=== PATIENT | female | born 1950 | race Caucasian/White ===

== ENCOUNTER 2018-03-18 09:17 | Outpatient (CLI) | payer MEDICARE, OTHER ==
[2018-03-18 10:41] LABS: #Eosinphils 0.3 thou/uL (0.0-0.7); #Lymphocytes 1.3 thou/uL (1.20-3.40); #Monocytes 0.5 thou/uL (0.11-0.59); #Neutrophils 3.5 thou/uL (1.40-6.50); %Basophils 0.7 % (0.0-1.0); %Eosinophils 5.5 % (0.0-10.0); %Lymphocytes 23.7 % (21.0-51.0); %Monocytes 8.4 % (0.0-10.0); %Neutrophils 61.7 % (42.0-75.0); Hemoglobin 13.1 g/dL (12.0-16.0); Mean Corpuscular HGB CONC 31.6 g/dL (32.0-36.0); Mean Corpuscular Hemoglobin 26.2 pg (27.0-31.0); Mean Corpuscular Volume 83.1 fL (78.0-98.0); Mean Platelet Volume 8.6 fL (7.4-10.4); Platelet Count 231 thou/uL (130-400); White Blood Cell (WBC) Count 5.7 thou/uL (4.8-10.8)
[2018-03-18 11:06] LABS: ALT (SGPT) 14 U/L (8-55); AST (SGOT) 13 U/L (5-34); Alkaline Phosphatase 129 U/L (40-150); Anion Gap 10 mmol/L (10-20); BUN (Urea Nitrogen) 14 mg/dL (9.8-20.1); Bilirubin, Total 0.5 mg/dL (0.2-1.2); Calc. Creatinine Clearance 0 mL/min (70-130); Calcium 9.1 mg/dL (7.8-10.44); Carbon Dioxide 30 mmol/L (23-31); Chloride 103 mmol/L (98-107); Estimated GFR-MDRD 77; Globulin 3.2 g/dL (2.4-3.5); Glucose 75 mg/dL (80-115); Potassium 3.8 mmol/L (3.5-5.1); Protein, Total 7.2 g/dL (6.0-8.3); Sodium 139 mmol/L (136-145)
--- NOTE | 2018-03-20 17:51 | EKG ---
Test Reason : Blood Pressure : / mmHG Vent. Rate : 074 BPM Atrial Rate : 074 BPM P-R Int : 172 ms QRS Dur : 086 ms QT Int : 418 ms P-R-T Axes : 062 037 008 degrees QTc Int : 463 ms Normal sinus rhythm Normal ECG When compared with ECG of 26-OCT-2014 11:57, No significant change was found Confirmed by DEVYN CERVANTES (2) on 03/20/2018 5:51:14 PM Referred By: MIAH Confirmed By:DEVYN CERVANTES
== END 2018-03-18 09:18 | disposition home or self-care (01) ==
LOC: LABBT 09:17
PROVIDERS: ATTEND Surgery
DX: Z01.818 Encounter for other preprocedural examination (principal); C50.912 Malignant neoplasm of unspecified site of left female breast
CPT/HCPCS: 80053; 85025; 93005; 93010

== ENCOUNTER 2018-03-21 07:12 | Inpatient (IN) | payer MEDICARE, OTHER ==
[2018-03-18 09:22] VITALS: BMI 26.4
[2018-03-21] MEDS ORDERED: CEFAZOLIN/Water 2 GM/20 ML SYRINGE ONE (10:15)
[2018-03-21] MEDS ORDERED: Bupivacaine HCl 0.5%/Epinephrine 1:200,000/PF 30 ml Vial ONE (10:17)
[2018-03-21] MEDS ORDERED: Isosulfan Blue 50 MG/5 ML VIAL ONE (10:17)
--- NOTE | 2018-03-21 10:28 | NM ---
LEFT BREAST LYMPHOSCINTIGRAPHY: HISTORY: Malignant neoplasm of site of left female breast. RADIOPHARMACEUTICAL: 438 mCi Technetium 99m filtered sulfur colloid injected into the left periareolar region. FINDINGS: Planar anterior and lateral images of the head, neck, chest, and axillae was performed. There are fo ci of increased uptake in the left axilla. IMPRESSION: Carlos lymph node (S) in the left axilla. POS: PETROS
[2018-03-21] MEDS ORDERED: Fentanyl 100 MCG/2 ML VIAL ONE ×2 (11:30→13:53)
[2018-03-21] MEDS ORDERED: Succinylcholine Chloride 20 MG/ML 10 ml SYRINGE FS ONE (12:40)
[2018-03-21] MEDS ORDERED: Dexamethasone 20 MG/5 ML VIAL ONE (12:40)
[2018-03-21] MEDS ORDERED: Ketorolac Tromethamine 30 MG/ML VIAL ONE (12:40)
[2018-03-21] MEDS ORDERED: PROPOFOL 200 MG/20 ML VIAL ONE (12:40)
[2018-03-21] MEDS ORDERED: Ondansetron HCl/PF 4 MG/2 ML Vial ONE (12:40)
[2018-03-21] MEDS ORDERED: PHENYLEPHRINE-NS 100 MCG/ML 10 ML SYRINGE ONE (12:40)
[2018-03-21] MEDS ORDERED: Glycopyrrolate 0.2 MG/ML 5 ML SYRINGE ONE (12:40)
[2018-03-21] MEDS ORDERED: Morphine 4 MG/ML Carpuject SLOW IVP PRN (13:31)
[2018-03-21] MEDS ORDERED: Ondansetron HCl/PF 4 MG/2 ML Vial IVP PRN ×2 (13:31→13:49)
[2018-03-21] MEDS ORDERED: Dextrose 5% in Water 1,000 ML IV PRN (13:31)
[2018-03-21] MEDS ORDERED: HYDROcodone/Acetaminophen 10/325 mg Tablet PO PRN ×2 (13:31)
[2018-03-21] MEDS ORDERED: hydrALAZINE 20 MG/ML VIAL SLOW IVP PRN (13:31)
[2018-03-21] MEDS ORDERED: Promethazine HCl 25 MG/ML VIAL IM PRN ×2 (13:31→13:49)
[2018-03-21] MEDS ORDERED: Dextrose 50% Abboject 50 ML SYRINGE SLOW IVP PRN (13:31)
[2018-03-21] MEDS ORDERED: Promethazine HCl 25 MG/ML VIAL SLOW IVP PRN (13:49)
--- NOTE | 2018-03-21 13:52 | OP ---
PREOPERATIVE DIAGNOSIS: Left breast cancer. SURGEON: Jc Carey M.D. PROCEDURE PERFORMED: Left total mastectomy, sentinel lymph node biopsy and axillary dissection. INDICATIONS: A 67-year-old female who has augmented breast, noticed a mass in the left breast. Core biopsy was positive for infiltrating ductal carcinoma. FINDINGS: A 2/4 sentinel nodes were positive. There was about a 3 cm mass in the upper central [address]. There were other palpable nodes that were suspicious in the axilla. PROCEDURE IN DETAIL: After informed consent was obtained, the patient was taken to the operating ilene m and given general endotracheal anesthesia. She has undergone placement of a radio-nucleotide in [facility] radiology suite. Lymphazurin 3 mL was infiltrated subareolar. Her left breast was prepped and yelitza ped in usual fashion. Neoprobe was used with baseline counts of 115. Transcutaneous counts of 60 we re found. An elliptical incision was performed and the lateral most aspect was used to approach the nodes. Using the Neoprobe, a blue lymph node with in vivo counts of 200 was found. This was dissect ed out. Efferent and afferent lymphatics ligated with 3-0 Vicryl ties, sent to pathology. Another c ount of 150 found and then two other counts of over 100 were found. These four nodes were sent to [facility] for touch prep. While waiting on this, the ellipse of the breast was further excised and the plane was developed between subcutaneous tissue and breast tissue utilizing the plasma blade to just below the clavicle superior to the sternum, medially to the latissimus, laterally to the rectus infe riorly taken off the pectoralis muscle to include the fascia, marked with a suture superior. Hemosta sis achieved with electrocautery. By now, the nodes came back 2/4 positive when I palpated. There w ere multiple other nodes that could be palpated, so an axillary dissection was performed. The deltop ectoral fascia was further incised. The axillary vein was found. The axillary fat pad was divided u tilizing the plasma blade. The lymphatics along the chest wall were ligated with 3-0 Vicryl ties. T he thoracodorsal nerve and vessels were dissected off the package and the specimen sent to pathology for further analysis. Hemostasis was assured. The wound was thoroughly irrigated. Two drains were placed, one in the axilla and one under the flap. Subcutaneous reapproximated with interrupted 3-0 V icryl. Skin closed with a running subcuticular 4-0 Rapide. Steri-Strips applied. Sterile bandage a pplied. The patient tolerated the procedure well and was transferred to recovery in good condition. Sponge and needle count verified correct x2.
[2018-03-21] MEDS: Lactated Ringer's 1,000 ML IV SCH (16:54)
[2018-03-21] MEDS: Docusate 100 MG CAP PO SCH (20:24)
[2018-03-21] MEDS: Famotidine 20 MG TAB PO SCH (20:24)
[2018-03-22 05:58] LABS: Anion Gap 11 mmol/L (10-20); BUN (Urea Nitrogen) 15 mg/dL (9.8-20.1); Calc. Creatinine Clearance 74 mL/min (70-130); Calcium 8.6 mg/dL (7.8-10.44); Carbon Dioxide 29 mmol/L (23-31); Chloride 101 mmol/L (98-107); Estimated GFR-MDRD 68; Glucose 132 mg/dL (80-115); Potassium 4.4 mmol/L (3.5-5.1); Sodium 137 mmol/L (136-145)
[2018-03-22 06:12] LABS: Band 13 % (5-11); Hemoglobin 10.6 g/dL (12.0-16.0); Lymphocytes 12 % (21-51); MDiff Complete? YES; Mean Corpuscular Hemoglobin 26.5 pg (27.0-31.0); Mean Platelet Volume 8.9 fL (7.4-10.4); Monocytes 1 % (0-10); Neutrophil 74 % (42-75); PLT Morphology Comment Appears Adequate; Platelet Count 215 thou/uL (130-400); RBC Distribution Width 13.8 % (11.5-14.5); White Blood Cell (WBC) Count 10.3 thou/uL (4.8-10.8)
[2018-03-22] MEDS: Lactated Ringer's 1,000 ML IV SCH (07:35)
--- NOTE | 2018-03-22 07:55 | DIS ---
DISCHARGE DIAGNOSIS: Left breast cancer. PROCEDURES DURING ADMISSION: Left total mastectomy, sentinel lymph node biopsy, completion axillary dissection. HOSPITAL COURSE: The patient was admitted. She was taken to the operating room where she underwent the sentinel node biopsy. While waiting for the results of that she underwent a total mastectomy. S he had multiple grossly positive nodes. These were confirmed. So further dissection was performed a nd further nodes that were suspicious were found. Postoperatively, she has done well. She is having minimal pain, drainage is well controlled. H&H is 10.6 and 33. The plan is to discharge her on hyd rocodone. She will follow up with me in 2-3 days.
[2018-03-22 08:15] VITALS: BP 119/70; TEMP 98.2
[2018-03-22] MEDS ORDERED: Enoxaparin Sodium 40 MG/0.4 ML SYRINGE SC SCH (09:00)
[2018-03-22] MEDS: Famotidine 20 MG TAB PO SCH (09:55)
[2018-03-22] MEDS: Docusate 100 MG CAP PO SCH (09:55)
== END 2018-03-22 10:18 | disposition home or self-care (01) | DRG 581 ==
LOC: SDC 07:12 → SURG A 15:39
PROVIDERS: ADMIT Surgery; ATTEND Surgery
PROC: 0HTU0ZZ Resection of Left Breast, Open Approach (ICD-10-PCS; principal; 2018-03-21)
PROC: 07B60ZX Excision of Left Axillary Lymphatic, Open Approach, Diagnostic (ICD-10-PCS; 2018-03-21)
DX: C50.812 Malignant neoplasm of overlapping sites of left female breast (principal); Z79.82 Long term (current) use of aspirin; Z98.82 Breast implant status; F41.9 Anxiety disorder, unspecified; E78.00 Pure hypercholesterolemia, unspecified; M19.90 Unspecified osteoarthritis, unspecified site; Z01.818 Encounter for other preprocedural examination; C50.912 Malignant neoplasm of unspecified site of left female breast
CPT/HCPCS: 36415; 78195; 80048; 80053; 85025; 88307; 88313; 88331; 88334; 88341; 88342; 93005; 93010; A9541; J0670; J3010; Q9968

== ENCOUNTER 2018-04-04 06:59 | Day surgery (SDC) | payer MEDICARE, OTHER ==
[2018-03-31 16:49] VITALS: BMI 26.4
[2018-04-04] MEDS ORDERED: CEFAZOLIN/Water 2 GM/20 ML SYRINGE ONE (08:11)
[2018-04-04] MEDS ORDERED: Bupivacaine/Epinephrine 0.25% 30 ML VIAL ONE (08:37)
[2018-04-04] MEDS ORDERED: Lidocaine 2% PF Inj 2 ML VIAL ONE (08:37)
[2018-04-04] MEDS ORDERED: PROPOFOL 20 ML ONE (08:50)
[2018-04-04] MEDS ORDERED: Midazolam HCl 2 mg/2 ml Vial ONE (08:50)
[2018-04-04] MEDS ORDERED: Fentanyl 100 MCG/2 ML VIAL ONE (08:50)
--- NOTE | 2018-04-04 10:39 | OP ---
DATE OF PROCEDURE: 04/04/2018 PREOPERATIVE DIAGNOSIS: Breast cancer. SURGEON: Jc Carey M.D. PROCEDURE PERFORMED: MediPort placement. INDICATIONS: This is a 67-year-old female who has a node positive breast cancer and needs chemothera py. FINDINGS: Right subclavian MediPort placement. PROCEDURE: After informed consent was obtained, the patient was taken to the operating room and give n general mask anesthesia, placed in supine position. Her chest was prepped and draped in usual fash ion. Local anesthesia infiltrated subcutaneously and deep and introducer needle inserted right subcl sidney. Good backflow of venous blood. J-wire threaded easily. Fluoroscopy showed good placement in superior vena cava. Skin and subcu anesthetized with local anesthesia. Transverse incision perform ed. The subcu divided sharply and a pocket created on the pectoralis fascia sharply with electrocaut marty. Then the tunneling device was used to connect the two incisions. The catheter brought through the tunnel, catheter was connected to the MediPort and flushed with heparinized saline. The MediPort was secured to pectoralis fascia with interrupted 2-0 Vicryl suture. The catheter cut to size. The peel-away introducer inserted over the wire. The wire was removed. The catheter inserted through t he peel-away introducer and the peel-away introducer removed. Fluoroscopy again used showed good myles cement in superior vena cava. The system was accessed. Good backflow of venous blood, flushed with heparinized saline. Subcu reapproximated with interrupted 3-0 Vicryl. Skin closed with running subc uticular 4-0 Rapide. Steri-Strips applied. Sterile bandage applied. The patient tolerated the proc edure well and was transferred to recovery in good condition. Sponge and needle count verified corre ct x2.
[2018-04-04] MEDS ORDERED: PROPOFOL 200 MG/20 ML VIAL ONE (10:52)
--- NOTE | 2018-04-04 11:12 | RAD ---
FRONTAL RADIOGRAPH CHEST: DATE: 04/04/2018. COMPARISON: 02/26/2015. HISTORY: Postoperative patient. FINDINGS: There is extensive postoperative hardware associated with the thoracic and lumbar spine, incompletely assessed on this exam. There is a rim-calcified breast implant on the right. A CT injectable right -sided Port-A-Cath is present, distal tip overlying the expected location of the cavoatrial junction. No pneumothorax, lobar consolidation, or alveolar edema. There is hazy increased linear density noted in both lung bases. There is a suggestion of a possible mass density in the right lung base, which is partially obscured by the patient's rim calcified breast implant. IMPRESSION: 1. CT injectable right-sided Port-A-Cath as above. 2. Question nodular mass density measuring up to 1.8 cm within the right lung base. This is partial ly obscured by the breast implant. Recommend CT chest for full assessment. CODE T POS: PETROS
== END 2018-04-04 10:47 | disposition home or self-care (01) ==
LOC: SDC 06:59
PROVIDERS: ATTEND Surgery
PROC: 02HV33Z Insertion of Infusion Device into Superior Vena Cava, Percutaneous Approach (ICD-10-PCS; principal; 2018-04-04)
DX: C50.912 Malignant neoplasm of unspecified site of left female breast (principal); E78.00 Pure hypercholesterolemia, unspecified; Z79.899 Other long term (current) drug therapy
CPT/HCPCS: 36561; 71045; C1788; J1642; J2250; J2704; J3010

== ENCOUNTER 2018-04-05 11:46 | Outpatient (CLI) | payer MEDICARE, OTHER ==
--- NOTE | 2018-04-05 15:15 | PET ---
PET WITH CT SKULL TO MID THIGH: CLINICAL HISTORY: Left breast cancer. RADIOPHARMACEUTICAL: 9.8 mCi F18-FDG IV. No prior imaging comparisons available. FINDINGS: There is mild increased metabolic activity at the medial aspect of the left scapula which is not hype rmetabolic with a SUV of approximately 1.5, nonspecific. There is no obvious destructive bone lesion identified within this region by attenuation correction CT imaging. There is a moderate to large hiat al hernia which reveals increased metabolic activity with a component of hypermetabolism, with SUV ra nging from 3.5-4.2. There are nonspecific ground-glass and reticulonodular opacities of the lungs, be low the threshold for resolution by PET CT imaging. There are interspersed faint areas of increased m etabolic activity, however, notably at the posterior left lung, with SUV of this region approximately 1.4. There is a prominent sized cyst of the left adnexa, which is not hypermetabolic, approximately 5.0 cm. IMPRESSION: 1. Mild increased metabolic activity, not hypermetabolic, involving medial aspect of the left scapul a. No obvious destructive lesion evident by attenuation correction noncontrast CT imaging. As a conse rvative measure, a whole body bone scan is warranted for a more definitive assessment. 2. Scattered ground-glass and reticulonodular opacities with slight increased metabolic activity as discussed above, although findings are too small for reliable resolution by PET CT imaging. This coul d relate to an infectious pneumonitis; however, given the component of reticulonodularity, metastatic process cannot be excluded. Recommend follow-up with dedicated CT thorax. 3. Large left adnexal cyst, approximately 5 cm. Dedicated pelvic ultrasound is warranted. This findi ng is not hypermetabolic. POS: PETROS
== END 2018-04-05 11:47 | disposition home or self-care (01) ==
LOC: PET 11:46
PROVIDERS: ATTEND Internal Medicine Hematology & Oncology
DX: C50.912 Malignant neoplasm of unspecified site of left female breast (principal); R91.8 Other nonspecific abnormal finding of lung field; N83.8 Other noninflammatory disorders of ovary, fallopian tube and broad ligament
CPT/HCPCS: 78815; A9552

== ENCOUNTER 2018-04-22 12:28 | Outpatient (CLI) | payer MEDICARE, OTHER ==
[~2018-04-22 12:28] MED LIST: Iopamidol 370 76% 100 ML VIAL ONE
--- NOTE | 2018-04-22 18:17 | CT ---
CT OF THE CHEST WITH CONTRAST: 04/22/18 HISTORY: Breast cancer and abnormal PET scan. COMPARISON: PET CT 04/05/18. TECHNIQUE: Multiple contiguous axial images were obtained in a CT of the chest with contrast. Sagittal and coron al reformats were performed. FINDINGS: The heart is normal in size without focal cardiac abnormality. No hilar or mediastinal lymphadenopath y are seen. No focal infiltrates or masses are seen in the lungs. No pneumothorax or pleural effusions are seen. Scoliotic curvature is seen of the spine. The patient has fixation rods in the spine. No suspicious o sseous lesions are identified in the visualized bones. The visualized subdiaphragmatic structures are unremarkable. The patient has had a left mastectomy. T he patient has a calcified left breast implant. There is a fluid density in the left axillary region measuring 2.0 cm in size which may represent a small seroma. IMPRESSION: 1. No evidence of acute intrathoracic abnormality. 2. No evidence of metastatic disease. POS: PETROS
== END 2018-04-22 12:29 | disposition home or self-care (01) ==
LOC: BICCT 12:28
PROVIDERS: ATTEND Internal Medicine Hematology & Oncology
DX: C50.919 Malignant neoplasm of unspecified site of unspecified female breast (principal)
CPT/HCPCS: 71260

== ENCOUNTER 2018-05-23 10:40 | Outpatient (CLI) | payer MEDICARE, OTHER ==
[2018-05-23] MEDS ORDERED: Iopamidol 370 76% 100 ML VIAL ONE (11:51)
--- NOTE | 2018-05-23 13:53 | CT ---
CT ANGIO OF CHEST PERFORMED WITH INTRAVENOUS CONTRAST ENHANCEMENT WITH 3D RECONSTRUCTIONS: HISTORY: Shortness of breath for the past 2 weeks that has been steadily worsening. The patient has a history of breast cancer. FINDINGS: The lungs are clear of any infiltrative process. No pulmonary nodules are identified. No significant mediastinal or hilar adenopathy. The thoracic aorta is normal in caliber. There is good pulmonary artery opacification, no CT evidence for pulmonary embolus. Calcified right breast implant is noted. A left mastectomy is present. A hiatal hernia is seen. It is stable as compared to the 04/22/2018 study. Visualized portions of t he liver and spleen are normal. IMPRESSION: No CT evidence for pulmonary embolus. Findings telephoned to Dr. Recinos. CODE CR POS: PETROS
== END 2018-05-23 10:41 | disposition home or self-care (01) ==
LOC: CT 10:40
PROVIDERS: ATTEND Internal Medicine Hematology & Oncology
DX: R06.02 Shortness of breath (principal); C50.112 Malignant neoplasm of central portion of left female breast; D50.8 Other iron deficiency anemias
CPT/HCPCS: 71275; 80053; 82248; 83615; 84100; 84550

== ENCOUNTER 2019-04-21 09:16 | Outpatient (CLI) | payer MEDICARE, OTHER ==
--- NOTE | 2019-04-21 12:16 | CT ---
EXAM: CT chest and abdomen with IV contrast: HISTORY: Breast cancer. History of ovarian cyst. History of left mastectomy with chemotherapy and radiation. COMPARISON: CTA thorax on 05/23/2018 and PET/CT on 04/05/2018 FINDINGS: CT THORAX: Lungs: There is patchy parenchymal density seen in the left lung apex which represents interval crouch e from the prior exam. Again noted is evidence of a left mastectomy, and there is now subcutaneous edema/stranding seen in the left lower chest. Follow-up evaluation is recommended. No discrete pulmo nary nodule or mass is identified. Pleura: No pleural effusion. Lymph nodes: No lymphadenopathy. Mediastinum: A right subclavian Mediport catheter remains in place. There is a hiatal hernia identifi ed. Chest wall: A calcified right breast prosthesis is noted with evidence of left mastectomy as describe d above. Surgical clips are seen in the left axilla. CT ABDOMEN AND PELVIS: Liver: Within normal limits. Gallbladder: Within normal limits. Pancreas: Within normal limits. Spleen: Within normal limits. Adrenal glands: Within normal limits. Kidneys: Small right renal cyst measuring 1.2 cm is seen in the midportion right kidney. Kidneys othe rwise have a normal CT appearance. Bowel: Small amount of retained fecal material seen in the visualized colon. Adenopathy:No lymphadenopathy within the abdomen or pelvis. Peritoneum: No free fluid or fluid collection is seen. No free intraperitoneal gas is identified. Abdominal wall: No abnormalities seen. Osseous structures: Postsurgical changes thoracolumbar spine are noted with right convex scoliosis ag ain seen. Degenerative changes are seen in the lumbar spine. IMPRESSION: 1. Interval development of patchy parenchymal density in the left lung apex. This could be related to radiation pneumonitis. However, infectious process in the correct clinical scenario is also a possibility. Follow-up evaluation is recommended. 2. Postsurgical changes related to left mastectomy. Subcutaneous edema is seen in the anterior left c hest wall, this may also be related to postradiation changes. 3. No CT findings to suggest metastatic disease. 4. Hiatal hernia. 5. Right renal cyst.
== END 2019-04-21 09:17 | disposition home or self-care (01) ==
LOC: BICCT 09:16
PROVIDERS: ATTEND Internal Medicine Hematology & Oncology
DX: C50.919 Malignant neoplasm of unspecified site of unspecified female breast (principal); N83.291 Other ovarian cyst, right side; N28.1 Cyst of kidney, acquired; K44.9 Diaphragmatic hernia without obstruction or gangrene; Z98.890 Other specified postprocedural states
CPT/HCPCS: 71260; 74160; 82565

== ENCOUNTER 2019-08-02 08:03 | Outpatient (CLI) | payer MEDICARE, OTHER ==
[2019-08-02 15:32] LABS: #Basophils 0.1 thou/uL (0.0-0.2); #Eosinphils 0.2 thou/uL (0.0-0.7); #Lymphocytes 1.1 thou/uL (1.20-3.40); #Monocytes 0.4 thou/uL (0.11-0.59); %Basophils 1.2 % (0.0-1.0); %Eosinophils 3.6 % (0.0-10.0); %Lymphocytes 22.6 % (21.0-51.0); %Monocytes 8.3 % (0.0-10.0); %Neutrophils 64.2 % (42.0-75.0); Hemoglobin 13.6 g/dL (12.0-16.0); Mean Corpuscular HGB CONC 33.1 g/dL (32.0-36.0); Mean Corpuscular Hemoglobin 29.9 pg (27.0-31.0); Mean Corpuscular Volume 90.3 fL (78.0-98.0); Mean Platelet Volume 7.5 fL (7.4-10.4); Platelet Count 210 thou/uL (130-400); RBC Distribution Width 12.6 % (11.5-14.5); Red Blood Cell (RBC) Count 4.54 mill/uL (4.20-5.40); White Blood Cell (WBC) Count 4.7 thou/uL (4.8-10.8)
[2019-08-02 16:02] LABS: ALT (SGPT) 15 U/L (8-55); AST (SGOT) 14 U/L (5-34); Albumin 4.1 g/dL (3.4-4.8); Alkaline Phosphatase 126 U/L (40-110); Anion Gap 11 mmol/L (10-20); BUN (Urea Nitrogen) 17 mg/dL (9.8-20.1); Bilirubin, Total 0.4 mg/dL (0.2-1.2); Calc. Creatinine Clearance 0 mL/min (70-130); Calcium 9.3 mg/dL (7.8-10.44); Carbon Dioxide 31 mmol/L (23-31); Chloride 104 mmol/L (98-107); Estimated GFR-MDRD 68; Globulin 2.8 g/dL (2.4-3.5); Glucose 86 mg/dL (80-115); Potassium 4.3 mmol/L (3.5-5.1); Protein, Total 6.9 g/dL (6.0-8.3); Sodium 142 mmol/L (136-145)
== END 2019-08-02 08:04 | disposition home or self-care (01) ==
LOC: LABBT 08:03
PROVIDERS: ATTEND Surgery
DX: Z01.818 Encounter for other preprocedural examination (principal); R22.2 Localized swelling, mass and lump, trunk
CPT/HCPCS: 80053; 85025; 93005; 93010

== ENCOUNTER 2019-08-04 06:33 | Day surgery (SDC) | payer MEDICARE, OTHER ==
[2019-08-02 14:00] VITALS: BMI 22.9
[2019-08-04] MEDS ORDERED: Lidocaine 1% w/Epinephrine 1:100K 20 ML VIAL ONE (06:59)
[2019-08-04] MEDS ORDERED: Bupivacaine PF 0.5% 30 ML VIAL ONE (06:59)
[2019-08-04] MEDS ORDERED: Sodium Chloride 0.9% 10 ML ONE (07:26)
[2019-08-04] MEDS ORDERED: PROPOFOL 20 ML ONE (08:14)
[2019-08-04] MEDS ORDERED: Midazolam HCl 2 mg/2 ml Vial ONE (08:14)
[2019-08-04] MEDS ORDERED: Fentanyl 100 MCG/2 ML VIAL ONE (08:14)
--- NOTE | 2019-08-04 10:10 | OP ---
DATE OF PROCEDURE: 08/04/2019 PREOPERATIVE DIAGNOSIS: Left chest wall mass with history of breast cancer. PROCEDURE PERFORMED: Excisional biopsy. INDICATIONS: A 68-year-old female, who had, had a previous left modified radical mastectomy for breast cancer, who had noticed a mass in the chest wall that was new. FINDINGS: A 1-cm vague mass, lateral aspect of the scar of left chest wall. DESCRIPTION OF PROCEDURE: After informed consent was obtained, the patient was taken to the operating room. She had undergone preoperative marking in the Day Stay prior to any type of anesthesia. She was then taken to the operating room, where she was given IV sedation, placed in the supine position. The chest was prepped and draped in usual fashion. Local anesthesia was infiltrated subcutaneously and deep. An elliptical incision was performed. Subcu was excised in the area down to the pectoralis fascia and excised. It was marked with a black suture superior. Hemostasis was achieved utilizing electrocautery. The subcu was reapproximated with interrupted 3-0 Vicryl. Skin closed with a running subcuticular 4-0 Rapide. Steri-Strips applied. Sterile bandage applied. The patient tolerated the procedure well, transferred to Recovery in good condition. Sponge and needle count verified correct x2. Job ID: [id number]
[2019-08-04] MEDS ORDERED: PHENYLEPHRINE-NS 100 MCG/ML 10 ML SYRINGE ONE (10:34)
--- NOTE | 2019-08-09 09:49 | PQF ---
[facility] POST DISCHARGE CLINICAL DOCUMENTATION IMPROVEMENT CLARIFICATION FORM l Todays Date: 08/08/19 l Patients Name ORAL SPEAR l l Admit Date 08/04/19 l Disch Date 08/04/19 Water Pump Servicer Name Yves Quinones Email: [email or web address]: [phone] To be completed by Water Pump Servicer: Present Clinical Indicators - Signs / Symptoms Results and Location in Medical Record [ ] Documentation of: [ ] [ ] Documentation of: [ ] [ ] Documentation of: [ ] [ ] Documentation of: [ ] [ ] Risks [ ] [ ] [ ] Treatment [ ] Left chest wall mass Query for margins of excised chest wall lesion [ ] benign thus negative margins [ ] To be completed by Physician: NATHALIA TOLEDO The documentation in this patients record requires clarification to ensure coding compliance and accuracy. Check the appropriate box and include in your discharge summary. [ ] [ ] [ ] [ ] Please check this box if this does not apply to this patient [ ] Unable to determine [ ] Other diagnosis: Review the following information and exercise your independent professional judgment in responding to the clarification. Based upon the clinical findings, risk factors, and treatment, please clarify if you are treating one of the above probable or suspected diagnoses. Physician Signature: Date Time MTDD
== END 2019-08-04 10:45 | disposition home or self-care (01) ==
LOC: SDC 06:33
PROVIDERS: ATTEND Surgery
PROC: 0JB60ZZ Excision of Chest Subcutaneous Tissue and Fascia, Open Approach (ICD-10-PCS; principal; 2019-08-04)
DX: M79.89 Other specified soft tissue disorders (principal); I10 Essential (primary) hypertension; E78.5 Hyperlipidemia, unspecified; K21.9 Gastro-esophageal reflux disease without esophagitis; M19.90 Unspecified osteoarthritis, unspecified site; F41.9 Anxiety disorder, unspecified; E78.00 Pure hypercholesterolemia, unspecified; Z85.3 Personal history of malignant neoplasm of breast; Z79.1 Long term (current) use of non-steroidal anti-inflammatories (NSAID); Z79.82 Long term (current) use of aspirin; Z79.899 Other long term (current) drug therapy
CPT/HCPCS: 88304; 88342; J0690; J2250; J2704; J3010; S0020

== ENCOUNTER 2019-11-17 09:30 | Outpatient (CLI) | payer MEDICARE, OTHER ==
[2019-11-17] MEDS ORDERED: Iopamidol 370 76% 100 ML VIAL ONE (09:57)
--- NOTE | 2019-11-17 12:06 | CT ---
CT CHEST AND ABDOMEN WITH IV CONTRAST: Oral contrast was also administered. Multiplanar reconstruction. INDICATION: Breast cancer. Follow-up. Comparison made to previous CT of chest and abdomen dated 04/21/2019. FINDINGS: CT CHEST: Left mastectomy changes. There is a right breast prosthesis with densely calcified capsule which is s table from prior exam. Edema within the left mastectomy site noted previously has resolved. There is a new focal nodular opacity in the subcutaneous tissues at the left mastectomy site just beneath the scar. This measures approximately 1.1 cm AP dimension. This is nonspecific and may be postoperative i n nature; however, it is a new density when compared to the prior study. Recurrence cannot be exclude d. Suggest correlation with ultrasound. Adequate mammogram may not be possible given the mastectomy c hange. No evidence of axillary adenopathy. There are postoperative changes in the axilla from node dissectio n on the left. Right axilla appears unremarkable. Review of the lung aviles again shows parenchymal ground-glass opacity and scarring in the left apex. This was described on the prior exam and is slightly less pronounced today. Post radiation change wo uld be suspected. Lung aviles otherwise appear clear. There is a rather prominent fixed sliding diaphragmatic hernia with a portion of the stomach fixed ab ove the diaphragm. This was noted on the prior exam. There is a scoliotic curvature of the thoracic spine with convexity to the right. There are Harringto n rods in place. No evidence of osseous lytic or blastic process. IMPRESSION: 1. A new subcutaneous nodular opacity at the left mastectomy site just below the skin incision. Prob able postoperative change; however, given its new appearance from prior study, recurrence should be e xcluded. Recommend ultrasound evaluation. Ultrasound directed biopsy could be performed to rule out m alignancy if indicated. 2. Large fixed diaphragmatic hernia again noted. The size of this hernia may be slightly increased f rom the prior exam with a large portion of the stomach above the diaphragm. There is prominent gastri c wall thickening and luminal narrowing in this region of the stomach. 3. The parenchymal opacity in the left apex is less pronounced today and is most consistent with pos tradiation change. CT ABDOMEN: Liver, spleen, and pancreas unremarkable. Adrenal glands and kidneys unremarkable. There is a cyst in the right kidney, which was previously described and is stable. The visualized bowel loops appear normal. Aorta shows mild atherosclerotic change without aneurysm. N o adenopathy identified. Osseous structures show degenerative spine changes with no evidence of lytic or blastic lesion. IMPRESSION: No acute intra-abdominal abnormality. POS: AGW
== END 2019-11-17 09:31 | disposition home or self-care (01) ==
LOC: BICCT 09:30
PROVIDERS: ATTEND Internal Medicine Hematology & Oncology
DX: C50.112 Malignant neoplasm of central portion of left female breast (principal); N83.202 Unspecified ovarian cyst, left side; N28.1 Cyst of kidney, acquired; K44.9 Diaphragmatic hernia without obstruction or gangrene; N64.89 Other specified disorders of breast
CPT/HCPCS: 71260; 74160; 82565; Q9967

== ENCOUNTER 2019-12-06 06:33 | Outpatient (CLI) | payer MEDICARE, OTHER ==
[2019-12-06 14:05] LABS: #Eosinphils 0.1 thou/uL (0.0-0.7); #Lymphocytes 0.9 thou/uL (1.20-3.40); #Monocytes 0.4 thou/uL (0.11-0.59); #Neutrophils 2.8 thou/uL (1.40-6.50); %Basophils 0.1 % (0.0-1.0); %Eosinophils 3.3 % (0.0-10.0); %Lymphocytes 22.1 % (21.0-51.0); %Monocytes 8.6 % (0.0-10.0); Mean Corpuscular HGB CONC 32.7 g/dL (32.0-36.0); Mean Corpuscular Hemoglobin 29.5 pg (27.0-31.0); Mean Corpuscular Volume 90.3 fL (78.0-98.0); Mean Platelet Volume 7.7 fL (7.4-10.4); Platelet Count 193 thou/uL (130-400); RBC Distribution Width 12.6 % (11.5-14.5); Red Blood Cell (RBC) Count 4.74 mill/uL (4.20-5.40); White Blood Cell (WBC) Count 4.3 thou/uL (4.8-10.8)
== END 2019-12-06 06:34 | disposition home or self-care (01) ==
LOC: LABBT 06:33
PROVIDERS: ATTEND Surgery
DX: Z01.812 Encounter for preprocedural laboratory examination (principal); Z11.59 Encounter for screening for other viral diseases; C50.919 Malignant neoplasm of unspecified site of unspecified female breast
CPT/HCPCS: 85025; U0003; 87635

== ENCOUNTER 2019-12-08 06:20 | Day surgery (SDC) | payer MEDICARE, OTHER ==
[2019-12-05 12:09] VITALS: BMI 24.4
[2019-12-08] MEDS ORDERED: Lidocaine 1% w/Epinephrine 1:100K 20 ML VIAL ONE (06:52)
[2019-12-08] MEDS ORDERED: Bupivacaine 0.25% HCL 30 ML VIAL ONE (06:52)
[2019-12-08] MEDS ORDERED: Fentanyl 100 MCG/2 ML VIAL ONE ×2 (07:37→07:40)
[2019-12-08] MEDS ORDERED: Midazolam HCl 2 mg/2 ml Vial ONE ×2 (07:37→07:40)
[2019-12-08] MEDS ORDERED: Lidocaine 1% PF 5 ML VIAL ONE (10:04)
[2019-12-08] MEDS ORDERED: PROPOFOL 200 MG/20 ML VIAL ONE (10:04)
--- NOTE | 2019-12-08 11:49 | OP ---
DATE OF PROCEDURE: 12/08/2019 PREOPERATIVE DIAGNOSIS: Breast cancer, completed chemo. PROCEDURE PERFORMED: MediPort removal. INDICATION: A 69-year-old female, who has been treated with chemotherapy for breast cancer. No longer requires MediPort. FINDINGS: Intact system right subclavian. DESCRIPTION OF PROCEDURE: After informed consent was obtained, the patient was taken to the operating room and given general mask anesthesia, placed in the supine position. Her chest was prepped and draped in usual fashion. Local anesthesia was infiltrated subcutaneously and deep. Transverse incision performed through the old scar. Subcu divided sharply down to the capsule. Capsule was incised. The sutures were removed. The MediPort removed. The tubing tract had some bleeding. This was ligated with a [id number] of 2-0 Vicryl suture. Hemostasis assured. Subcu reapproximated with interrupted 3-0 Vicryl. Skin closed with running subcuticular 4-0 Rapide. Dermabond applied. The patient tolerated the procedure well, transferred to Recovery in good condition. Sponge and needle count verified correct x2. Job ID: [id number]
== END 2019-12-08 08:50 | disposition home or self-care (01) ==
LOC: SDC 06:20
PROVIDERS: ATTEND Surgery
PROC: 0JPT0WZ Removal of Totally Implantable Vascular Access Device from Trunk Subcutaneous Tissue and Fascia, Open Approach (ICD-10-PCS; principal; 2019-12-08)
PROC: 05PY33Z Removal of Infusion Device from Upper Vein, Percutaneous Approach (ICD-10-PCS; 2019-12-08)
DX: Z45.2 Encounter for adjustment and management of vascular access device (principal); C50.919 Malignant neoplasm of unspecified site of unspecified female breast; I10 Essential (primary) hypertension; E78.5 Hyperlipidemia, unspecified; K21.9 Gastro-esophageal reflux disease without esophagitis; M19.90 Unspecified osteoarthritis, unspecified site; F41.9 Anxiety disorder, unspecified; E78.00 Pure hypercholesterolemia, unspecified; Z92.21 Personal history of antineoplastic chemotherapy; Z79.1 Long term (current) use of non-steroidal anti-inflammatories (NSAID); Z79.82 Long term (current) use of aspirin; Z79.899 Other long term (current) drug therapy
CPT/HCPCS: J0690; J2001; J2250; J2704; J3010; S0020

== ENCOUNTER 2019-12-21 10:29 | Outpatient (CLI) | payer MEDICARE, OTHER ==
--- NOTE | 2019-12-21 11:21 | MMO ---
Right Breast MAMMO Unilat Diag DDI RT+TAURUS. CLINICAL HISTORY: Patient is 69 years old and is seen for diagnostic exam. The patient has the following family history of breast cancer: 2 maternal aunts. The patient has a history of left Mastectomy at age 67 - malignant and right Implants in 1975. VIEWS: The views performed were: right craniocaudal; right craniocaudal with tomosynthesis; right mediolateral oblique; right mediolateral oblique with tomosynthesis; right mediolateral; right mediolateral with tomosynthesis; and right Implant displaced with tomosynthesis. FILMS COMPARED: The present examination has been compared to prior imaging studies performed at [facility] on 02/25/2018, 03/01/2018 and 02/14/2019. This study has been interpreted with the assistance of computer-aided detection. MAMMOGRAM FINDINGS: There are scattered fibroglandular densities. Finding 1: There are stable benign appearing calcifications seen in the right breast. Finding 2: Normal implants are present. There are no suspicious masses, suspicious calcifications, or new areas of architectural distortion. IMPRESSION: THERE IS NO MAMMOGRAPHIC EVIDENCE OF MALIGNANCY. A ROUTINE FOLLOW-UP MAMMOGRAM IN 1 YEAR IS RECOMMENDED. THE RESULTS OF THIS EXAM WERE SENT TO THE PATIENT. ACR BI-RADS Category 2 - Benign finding MAMMOGRAPHY NOTE: 1. A negative mammogram report should not delay a biopsy if a dominant of clinically suspicious mass is present. 2. Approximately 10% to 15% of breast cancers are not detected by mammography. 3. Adenosis and dense breasts may obscure an underlying neoplasm. Reported by: CHERYL FELIPE MD Electonically Signed: [id number]
== END 2019-12-21 10:30 | disposition home or self-care (01) ==
LOC: BICMAMMO 10:29
PROVIDERS: ATTEND Internal Medicine Hematology & Oncology
DX: Z08 Encounter for follow-up examination after completed treatment for malignant neoplasm (principal); Z85.3 Personal history of malignant neoplasm of breast
CPT/HCPCS: 77065; G0279

== ENCOUNTER 2020-05-08 09:03 | Outpatient (CLI) | payer MEDICARE, OTHER ==
--- NOTE | 2020-05-08 10:11 | CT ---
CT Chest W Con CT abdomen with contrast History: Breast cancer. Right ovarian cyst. Right renal cyst. Cholecystectomy. Chemoradiation and rig ht breast implant. Comparison: CT exam October 2019 Findings: Left apical scarring is also the similar. No suspicious pulmonary nodule. Large hiatal hernia. No acute osseous abnormality. No suspicious osteolytic or osteoblastic foci. Spi nal fusion hardware from scoliosis is intact. Moderate S-shaped scoliosis thoracolumbar spine. Peripherally calcified retracted right breast implant. Scarring in the left axilla left mastectomy si te. Large hiatal hernia. 8 mm hypodensity in the pancreatic uncinate process is similar. 11 mm cyst poste rior cortex interpolar right kidney is similar. No abnormal enhancing renal mass. The liver, gallbladder, spleen are unremarkable. Adrenal glands are normal. Aortic ectasia without an eurysmal dilatation. No dilated loops of bowel. No retroperitoneal periaortic adenopathy. Impression: 1. No evidence for recurrence or metastasis. 2. Unchanged renal and pancreatic cysts.
[2020-05-08] MEDS ORDERED: Iopamidol 370 76% 100 ML VIAL ONE (14:26)
== END 2020-05-08 09:04 | disposition home or self-care (01) ==
LOC: BICCT 09:03
PROVIDERS: ATTEND Internal Medicine Hematology & Oncology
DX: C50.919 Malignant neoplasm of unspecified site of unspecified female breast (principal); N83.201 Unspecified ovarian cyst, right side; N28.1 Cyst of kidney, acquired; K86.2 Cyst of pancreas
CPT/HCPCS: 71260; 74160; 82565; Q9967

== ENCOUNTER 2020-08-19 09:14 | Outpatient (CLI) | payer MEDICARE, OTHER ==
--- NOTE | 2020-08-19 10:25 | BD ---
DEXA BONE DENSITY STUDY: HISTORY: Postmenopausal. FINDINGS: Lumbar Spine: BMD (g/cm2) Left: Femoral Neck: 0.719 T-Score: -1.2 Total Femur: 0.757 T-Score: -1.5 Right: Femoral Neck: 0.682 T-Score: -1.5 Total Femur: 0.729 T-Score: -1.7 Impression: 1. Osteopenia of both femoral necks. 2. The 10-year fracture risk for major osteoporotic fracture is 13% and hip fracture 2.3%. These fr acture probabilities are calculated for an untreated patient. POS: [facility]
== END 2020-08-19 09:15 | disposition home or self-care (01) ==
LOC: BICMAMMO 09:14
PROVIDERS: ATTEND Family Medicine
DX: Z13.820 Encounter for screening for osteoporosis (principal); M85.851 Other specified disorders of bone density and structure, right thigh; M85.852 Other specified disorders of bone density and structure, left thigh
CPT/HCPCS: 77080

== ENCOUNTER 2020-12-10 14:47 | Outpatient (CLI) | payer MEDICARE, OTHER | END 2020-12-10 14:48 | disposition home or self-care (01) | LOC: BICMAMMO 14:47 | PROVIDERS: ATTEND Internal Medicine Hematology & Oncology | DX: Z08 Encounter for follow-up examination after completed treatment for malignant neoplasm (principal); Z85.3 Personal history of malignant neoplasm of breast | CPT/HCPCS: 77065; G0279 ==

== ENCOUNTER 2021-07-07 10:16 | Outpatient (CLI) | payer MEDICARE, OTHER | END 2021-07-07 10:17 | disposition home or self-care (01) | LOC: RAD 10:16 | PROVIDERS: ATTEND Internal Medicine Critical Care Medicine | DX: R06.00 Dyspnea, unspecified (principal) | CPT/HCPCS: 71046 ==

== ENCOUNTER 2021-12-11 10:20 | Outpatient (CLI) | payer MEDICARE, OTHER | END 2021-12-11 10:21 | disposition home or self-care (01) | LOC: BICMAMMO 10:20 | PROVIDERS: ATTEND Internal Medicine Hematology & Oncology | DX: Z08 Encounter for follow-up examination after completed treatment for malignant neoplasm (principal); Z85.3 Personal history of malignant neoplasm of breast; Z90.12 Acquired absence of left breast and nipple | CPT/HCPCS: 77065; G0279 ==

== ENCOUNTER 2022-07-06 10:20 | Outpatient (CLI) | payer MEDICARE, OTHER ==
[2022-07-06 12:51] LABS: #Basophils 0.1 10x3/uL (0.0-0.2); #Eosinphils 0.3 10x3/uL (0.0-0.5); #Monocytes 0.5 10x3/uL (0.0-1.1); #Neutrophils 4.5 10x3/uL (1.5-8.4); %Basophils 0.8 % (0.0-2.0); %Eosinophils 4.9 % (0.0-6.0); %Lymphocytes 17.6 % (18.0-47.0); %Monocytes 8.3 % (0.0-10.0); %Neutrophils 68.1 % (40.0-75.0); Hemoglobin 13.3 g/dL (12.0-15.5); Mean Corpuscular HGB CONC 32.4 g/dL (32.0-36.0); Mean Corpuscular Volume 89.5 fl (81.6-98.3); Mean Platelet Volume 10.1 fl (7.4-10.4); Platelet Count 264 10x3/uL (150-450); RBC Distribution Width 13.7 % (11.5-14.5); Red Blood Cell (RBC) Count 4.59 10x6/uL (3.90-5.03); White Blood Cell (WBC) Count 6.5 10x3/uL (3.5-10.5)
[2022-07-06 13:11] LABS: Anion Gap 13 mmol/L (10-20); BUN (Urea Nitrogen) 17 mg/dL (9.8-20.1); Calc. Creatinine Clearance 0 mL/min (70-130); Calcium 9.5 mg/dL (7.8-10.44); Carbon Dioxide 30 mmol/L (23-31); Chloride 102 mmol/L (98-107); Estimated GFR 82; Glucose 73 mg/dL (83-110); Potassium 4.3 mmol/L (3.5-5.1); Sodium 141 mmol/L (136-145)
[2022-07-06 13:13] LABS: INR-International Normal Ratio 0.9; Prothrombin Time 10.3 sec (9.5-12.1)
== END 2022-07-06 10:21 | disposition home or self-care (01) ==
LOC: LABBT 10:20
PROVIDERS: ATTEND Orthopaedic Surgery
DX: Z01.812 Encounter for preprocedural laboratory examination (principal); M17.11 Unilateral primary osteoarthritis, right knee
CPT/HCPCS: 80048; 85025; 85610; 87081; 93005; 93010

== ENCOUNTER 2022-07-21 09:34 | Inpatient (IN) | payer MEDICARE, OTHER ==
[2022-07-21] MEDS ORDERED: Sodium Chloride 0.9% 100 ML ONE ×2 (10:14→13:44)
[2022-07-21] MEDS ORDERED: Tranexamic Acid 1,000 MG/10 ML VIAL ONE (10:14)
[2022-07-21] MEDS ORDERED: Vancomycin 1 GM/200 ML (FROZEN) BAG ONE (10:15)
[2022-07-21 10:55] LABS: SARS-CoV-2 NAA Rapid Test Not Detected (NotDetected)
[2022-07-21] MEDS ORDERED: Midazolam HCl 2 mg/2 ml Vial ONE (11:43)
[2022-07-21] MEDS ORDERED: Bupivacaine PF 0.5% 30 ML VIAL ONE ×2 (11:43→14:19)
[2022-07-21] MEDS ORDERED: Fentanyl 100 MCG/2 ML VIAL ONE ×2 (11:43→15:43)
[2022-07-21] MEDS ORDERED: Ropivacaine 0.2% 550 ML 550 ML NERVE BLCK SCH (12:00)
[2022-07-21] MEDS ORDERED: Fentanyl 100 MCG/2 ML VIAL IV PRN (12:00)
[2022-07-21] MEDS ORDERED: Promethazine HCl 25 MG/ML VIAL IM PRN ×3 (12:00→14:36)
[2022-07-21] MEDS ORDERED: traMADol HCl 50 MG TAB PO PRN ×2 (12:00)
[2022-07-21] MEDS ORDERED: Zolpidem Tartrate 5 MG TAB PO PRN ×2 (12:00→13:22)
[2022-07-21] MEDS ORDERED: Ondansetron PF 4 MG/2 ML Vial IVP PRN (13:22)
[2022-07-21] MEDS ORDERED: diphenhydrAMINE 25 MG CAP PO PRN (13:22)
[2022-07-21] MEDS ORDERED: Bupivacaine/Epinephrine 0.25% 30 ML VIAL ONE (13:27)
[2022-07-21] MEDS ORDERED: fentaNYL PF 100 MCG/2 ML SYRINGE ONE (13:37)
[2022-07-21] MEDS ORDERED: Famotidine/PF 20 mg/2ml Vial ONE (13:37)
[2022-07-21] MEDS ORDERED: CEFAZOLIN 1 GM VIAL ONE (13:44)
[2022-07-21] MEDS ORDERED: CEFAZOLIN 2 GM VIAL ONE (13:44)
[2022-07-21] MEDS ORDERED: Bupivacaine HCl 0.5%/Epinephrine 1:200,000/PF 30 ml Vial ONE (13:51)
[2022-07-21] MEDS ORDERED: PROPOFOL 200 MG/20 ML VIAL ONE (14:00)
[2022-07-21] MEDS ORDERED: Lidocaine 1% PF 5 ML VIAL ONE (14:00)
[2022-07-21] MEDS ORDERED: Glycopyrrolate 0.2 MG/ML 5 ML SYRINGE ONE (14:00)
[2022-07-21] MEDS ORDERED: Ondansetron PF 4 MG/2 ML Vial ONE (14:00)
[2022-07-21] MEDS ORDERED: PHENYLEPHRINE-NS 100 MCG/ML 10 ML SYRINGE ONE (14:00)
[2022-07-21] MEDS ORDERED: ePHEDrine 50 MG/ML VIAL ONE (14:00)
[2022-07-21] MEDS ORDERED: HYDROmorphone 2 MG/ML VIAL SLOW IVP PRN (14:36)
[2022-07-21 21:52] VITALS: BMI 25.4
[2022-07-21] MEDS: HYDROcodone/Acetaminophen 10/325 mg Tablet PO PRN (21:57)
[2022-07-21] MEDS: CEFAZOLIN 2 GM in Sodium Chloride 0.9% 100 ML IVPB SCH (21:58)
[2022-07-21] MEDS: Ferrous Gluconate 324 MG TAB PO SCH (21:58)
[2022-07-21] MEDS: Senokot S 8.6-50 MG TAB PO SCH (21:58)
[2022-07-21] MEDS: Aspirin 81 mg Enteric Coated Tablet PO SCH (21:59)
[2022-07-21] MEDS: Sodium Chloride 0.9% 1,000 ML IV SCH (21:59)
[2022-07-21] MEDS: Atorvastatin Calcium 20 MG TAB PO SCH (21:59)
[2022-07-21] MEDS: Ketorolac Tromethamine 30 MG/ML VIAL IVP SCH ×2 (22:15→22:33)
[2022-07-22] MEDS: Ketorolac Tromethamine 30 MG/ML VIAL IVP SCH ×4 (01:44→17:13)
[2022-07-22] MEDS: Ondansetron PF 4 MG/2 ML Vial IVP PRN ×2 (01:45→10:07)
[2022-07-22] MEDS: HYDROcodone/Acetaminophen 10/325 mg Tablet PO PRN ×3 (01:45→15:43)
[2022-07-22] MEDS: CEFAZOLIN 2 GM in Sodium Chloride 0.9% 100 ML IVPB SCH (06:28)
[2022-07-22 07:16] LABS: Hemoglobin 10.3 g/dL (12.0-16.0); Mean Corpuscular HGB CONC 32.7 g/dL (32.0-36.0); Mean Corpuscular Hemoglobin 29.4 pg (27.0-31.0); Mean Platelet Volume 7.7 fL (7.4-10.4); Platelet Count 156 10x3/uL (130-400); RBC Distribution Width 12.4 % (11.5-14.5); White Blood Cell (WBC) Count 7.9 10x3/uL (4.8-10.8)
[2022-07-22] MEDS: Sodium Chloride 0.9% 1,000 ML IV SCH ×3 (08:03→19:13)
[2022-07-22] MEDS: Multivitamin W/ Minerals 1 TAB PO SCH (08:33)
[2022-07-22] MEDS: Ferrous Gluconate 324 MG TAB PO SCH ×2 (08:33→20:44)
[2022-07-22] MEDS: Senokot S 8.6-50 MG TAB PO SCH ×2 (08:33→20:44)
[2022-07-22] MEDS: Aspirin 81 mg Enteric Coated Tablet PO SCH ×2 (08:33→20:44)
[2022-07-22] MEDS: Citalopram 20 MG TAB PO SCH (08:34)
[2022-07-22] MEDS: Venlafaxine HCl XR 75 MG CAP PO SCH (08:34)
[2022-07-22] MEDS: Oxybutynin ER 5 MG TAB PO SCH (08:34)
[2022-07-22] MEDS: Amlodipine 5 mg/Benazepril 10 mg CAP PO SCH (08:36)
[2022-07-22] MEDS ORDERED: Aspirin Chewable 81 MG TAB PO SCH (09:00)
[2022-07-22] MEDS: Acetaminophen 325 MG TAB PO PRN (20:43)
[2022-07-22] MEDS: Atorvastatin Calcium 20 MG TAB PO SCH (20:45)
[2022-07-23] MEDS: Famotidine 20 MG TAB PO PRN ×2 (01:05→21:23)
[2022-07-23] MEDS: HYDROcodone/Acetaminophen 10/325 mg Tablet PO PRN ×3 (02:02→14:18)
[2022-07-23] MEDS: Ketorolac Tromethamine 30 MG/ML VIAL IVP SCH ×2 (02:05→07:33)
[2022-07-23 06:13] LABS: Hemoglobin 9.9 g/dL (12.0-16.0); Mean Corpuscular HGB CONC 32.7 g/dL (32.0-36.0); Mean Corpuscular Hemoglobin 29.4 pg (27.0-31.0); Mean Platelet Volume 7.9 fL (7.4-10.4); Platelet Count 155 10x3/uL (130-400); RBC Distribution Width 12.5 % (11.5-14.5); Red Blood Cell (RBC) Count 3.37 mill/uL (4.20-5.40); White Blood Cell (WBC) Count 13.4 10x3/uL (4.8-10.8)
[2022-07-23] MEDS: Sodium Chloride 0.9% 1,000 ML IV SCH ×2 (07:32→16:24)
[2022-07-23] MEDS: Oxybutynin ER 5 MG TAB PO SCH (08:58)
[2022-07-23] MEDS: Ferrous Gluconate 324 MG TAB PO SCH ×2 (08:58→21:23)
[2022-07-23] MEDS: Senokot S 8.6-50 MG TAB PO SCH ×2 (08:58→21:23)
[2022-07-23] MEDS: Multivitamin W/ Minerals 1 TAB PO SCH (08:58)
[2022-07-23] MEDS: Aspirin 81 mg Enteric Coated Tablet PO SCH ×2 (08:59→21:23)
[2022-07-23] MEDS: Amlodipine 5 mg/Benazepril 10 mg CAP PO SCH (08:59)
[2022-07-23] MEDS: Citalopram 20 MG TAB PO SCH (08:59)
[2022-07-23] MEDS: Venlafaxine HCl XR 75 MG CAP PO SCH (08:59)
[2022-07-23] MEDS: Atorvastatin Calcium 20 MG TAB PO SCH (21:23)
[2022-07-24] MEDS: Acetaminophen 325 MG TAB PO PRN (03:57)
[2022-07-24] MEDS: Sodium Chloride 0.9% 1,000 ML IV SCH ×2 (03:57→09:45)
[2022-07-24] MEDS: Ferrous Gluconate 324 MG TAB PO SCH ×2 (09:40→20:02)
[2022-07-24] MEDS: Amlodipine 5 mg/Benazepril 10 mg CAP PO SCH (09:40)
[2022-07-24] MEDS: Oxybutynin ER 5 MG TAB PO SCH (09:40)
[2022-07-24] MEDS: Aspirin 81 mg Enteric Coated Tablet PO SCH ×2 (09:40→20:01)
[2022-07-24] MEDS: Senokot S 8.6-50 MG TAB PO SCH ×2 (09:40→19:59)
[2022-07-24] MEDS: Multivitamin W/ Minerals 1 TAB PO SCH (09:40)
[2022-07-24] MEDS: Citalopram 20 MG TAB PO SCH (09:40)
[2022-07-24] MEDS: Venlafaxine HCl XR 75 MG CAP PO SCH (09:40)
[2022-07-24] MEDS ORDERED: Iopamidol-370 76% 500 ML 1 ML ONE (15:19)
[2022-07-24] MEDS: HYDROcodone/Acetaminophen 10/325 mg Tablet PO PRN ×2 (19:59→20:10)
[2022-07-24] MEDS: Atorvastatin Calcium 20 MG TAB PO SCH (20:01)
[2022-07-25] MEDS: Sodium Chloride 0.9% 1,000 ML IV SCH ×2 (00:38→07:12)
[2022-07-25] MEDS: Multivitamin W/ Minerals 1 TAB PO SCH (09:50)
[2022-07-25] MEDS: Citalopram 20 MG TAB PO SCH (09:50)
[2022-07-25] MEDS: Senokot S 8.6-50 MG TAB PO SCH (09:50)
[2022-07-25] MEDS: Amlodipine 5 mg/Benazepril 10 mg CAP PO SCH (09:51)
[2022-07-25] MEDS: Venlafaxine HCl XR 75 MG CAP PO SCH (09:51)
[2022-07-25] MEDS: Oxybutynin ER 5 MG TAB PO SCH (09:51)
[2022-07-25] MEDS: Ferrous Gluconate 324 MG TAB PO SCH (09:51)
[2022-07-25] MEDS: Aspirin 81 mg Enteric Coated Tablet PO SCH (09:51)
[2022-07-25] MEDS ORDERED: guaiFENesin/DM ER PO PRN (10:27)
[2022-07-25] MEDS ORDERED: Azithromycin 250 MG TAB PO SCH (13:00)
[2022-07-25] MEDS ORDERED: cefTRIAXone\\ROCEPHIN 1 GM in Sodium Chloride 0.9% 100 ML IVPB SCH (14:00)
[2022-07-25 16:55] VITALS: BP 131/66; TEMP 98.3
[2022-07-26] MEDS ORDERED: Amoxicillin/Potassium Clav 875 MG TAB PO SCH (09:00)
== END 2022-07-25 17:28 | disposition home or self-care (01) | DRG 469 ==
LOC: SDC 09:34 → SURG A 18:20 → OBSVTOIN 07-23 14:36
PROVIDERS: ADMIT Orthopaedic Surgery; ATTEND Orthopaedic Surgery
PROC: 0SRC0J9 Replacement of Right Knee Joint with Synthetic Substitute, Cemented, Open Approach (ICD-10-PCS; principal; 2022-07-21)
PROC: 8E0YXBZ Computer Assisted Procedure of Lower Extremity (ICD-10-PCS; 2022-07-21)
DX: M17.11 Unilateral primary osteoarthritis, right knee (principal); J18.9 Pneumonia, unspecified organism; I82.411 Acute embolism and thrombosis of right femoral vein; J96.01 Acute respiratory failure with hypoxia; T81.72XA Complication of vein following a procedure, not elsewhere classified, initial encounter; F41.9 Anxiety disorder, unspecified; E78.00 Pure hypercholesterolemia, unspecified; K21.9 Gastro-esophageal reflux disease without esophagitis; I10 Essential (primary) hypertension; M41.9 Scoliosis, unspecified; Z90.49 Acquired absence of other specified parts of digestive tract; Z98.890 Other specified postprocedural states; Y83.8 Other surgical procedures as the cause of abnormal reaction of the patient, or of later complication, without mention of misadventure at the time of the procedure
CPT/HCPCS: 36415; 71045; 71275; 85027; 87633; 87798; 93306; 93970; 96374; 96375; 96376; A4306; C1713; C1776; G0378; J0690; J0696; J1650; J1885; J2250; J2405; J2704; J2795; J3010; J3370-JW; J3490; J7050; S0020; S0028; U0002

== ENCOUNTER 2022-12-17 13:37 | Outpatient (CLI) | payer MEDICARE, OTHER | END 2022-12-17 13:38 | disposition home or self-care (01) | LOC: BICMAMMO 13:37 | PROVIDERS: ATTEND Internal Medicine Hematology & Oncology | DX: Z08 Encounter for follow-up examination after completed treatment for malignant neoplasm (principal); Z85.3 Personal history of malignant neoplasm of breast | CPT/HCPCS: 77065; G0279 ==

== ENCOUNTER 2023-12-27 14:14 | Outpatient (CLI) | payer MEDICARE, OTHER | END 2023-12-27 14:15 | disposition home or self-care (01) | LOC: BICMAMMO 14:14 | PROVIDERS: ATTEND Internal Medicine Hematology & Oncology | DX: Z12.31 Encounter for screening mammogram for malignant neoplasm of breast (principal); Z80.3 Family history of malignant neoplasm of breast; Z85.3 Personal history of malignant neoplasm of breast; Z90.12 Acquired absence of left breast and nipple; Z98.82 Breast implant status | CPT/HCPCS: 77063; 77067 ==

== ENCOUNTER 2024-05-22 11:14 | Outpatient (CLI) | payer MEDICARE, OTHER | END 2024-05-22 11:15 | disposition home or self-care (01) | LOC: BICRAD 11:14 | PROVIDERS: ATTEND Family Medicine | DX: S33.6XXA Sprain of sacroiliac joint, initial encounter (principal); M54.50 Low back pain, unspecified; M47.816 Spondylosis without myelopathy or radiculopathy, lumbar region; M41.9 Scoliosis, unspecified | CPT/HCPCS: 72100; 72202 ==

== ENCOUNTER 2024-07-04 14:16 | Outpatient (CLI) | payer MEDICARE, OTHER | END 2024-07-04 14:17 | disposition home or self-care (01) | LOC: BICCT 14:16 | PROVIDERS: ATTEND Family Medicine | DX: M54.50 Low back pain, unspecified (principal); M47.816 Spondylosis without myelopathy or radiculopathy, lumbar region; M41.9 Scoliosis, unspecified; M47.817 Spondylosis without myelopathy or radiculopathy, lumbosacral region; M48.07 Spinal stenosis, lumbosacral region | CPT/HCPCS: 72131 ==